=== PATIENT | female | born 1970 | race Caucasian/White ===

== ENCOUNTER 2024-03-09 09:33 | Outpatient (CLI) | payer OTHER, SELFPAY ==
--- NOTE | ~2024-03-09 | MMUS_ITS ---
EXAMINATION: MM diagnostic ernestina BI w mu, US breast LT complete HISTORY: Left breast pain TECHNIQUE: Additional 3-D tomosynthesis images of the breasts were performed and synthetic 2-D images were generated. CAD analysis was submitted and interpreted. High resolution complete left breast ult rasound was performed. COMPARISON: None BREAST PARENCHYMAL COMPOSITION: Not Dense: The breasts are almost entirely fatty. FINDINGS: MAMMOGRAPHIC FINDINGS: There are no suspicious masses, calcifications or architectural distortion in either breast to sugges t malignancy. ULTRASOUND: Complete US of all 4 quadrants of the breast/s and retroareolar region was reviewed. Normal heterogen eous echotexture without focal solid or cystic mass. IMPRESSION: 1. No evidence for malignancy in either breast. 2. Routine yearly screening mammogram and regular clinical breast examination are recommended. BI-RADS Category 1: Negative Reviewed, dictated and finalized at location B. IMPRESSION: 1. No evidence for malignancy in either breast. 2. Routine yearly screening mammogram and regular clinical breast examination a re recommended. BI-RADS Category 1: Negative
== END 2024-03-09 09:34 ==
LOC: MICIMG 09:35
PROVIDERS: PCP Nurse Practitioner Women's Health; Visit Provider Nurse Practitioner Women's Health
DX: N64.4 Mastodynia (principal)
CPT/HCPCS: 76641; 77062; 77066; G0279

== ENCOUNTER 2024-08-24 10:34 | Emergency (ER) | payer OTHER, SELFPAY ==
--- NOTE | 2024-08-24 10:45 | ED_ITS ---
HPI - Eye Problem General Chief complaint: Eye Problems Stated complaint: left eye lid Time Seen by Provider: 08/24/24 10:45 Source: patient, RN notes reviewed and old records reviewed Mode of arrival: ambulatory Limitations: no limitations History of Present Illness HPI Narrative: 53 year presents to [facility] complaints left upper eye lid swelling since Thursday,stated she noted small pustular area under the left upper eyelid lash line but just raised red area now. Patient reports that she has been applying warm compresses to her left eye with no resolution in her symptoms. MD chief complaint: eye pain Onset (ago): day(s) (4) Onset description: gradual Duration: constant Location: left eye Eye Symptoms: pain (upper eyelid) Severity: moderate Treatments Prior to Arrival: other (warm compresses) Related Data Allergies Allergy/AdvReac Type Severity Reaction Status Date / Time Penicillins Allergy Unknown Verified 06/17/16 16:50 Review of Systems Review of Systems: CONSTITUTIONAL: Denies fever, chills, or sweats. EYES: Denies visual changes. Reports redness,, irritation, to right upper eyelid with small pustular area on upper lash line, pustular area now just red raised lesion. ENT: Denies rhinorrhea, congestion, sore throat, or otalgia. CARDIOVASCULAR: Denies chest pain, palpitations, or edema. RESPIRATORY: Denies cough or dyspnea. SKIN: Denies rash or itching. NEUROLOGIC: Denies headache All systems reviewed & are unremarkable except as noted in HPI and below PMFSH Social History Social History (Updated 08/25/24 @ 10:48 by Patricia Valladares NP) Smoking status: Never smoker Alcohol intake: current Alcohol use details: rare social Substance use type: does not use Living arrangements: with family Gender identity (if verbalized by the patient): Female Comments At time of signature, agree with nursing past medical, surgical, social and family history. There is no relevant family history pertinent to the presenting complaint Exam Narrative: GENERAL: Well-appearing, well-nourished, and in no acute distress. HEAD: Normocephalic, atraumatic. EYES: PERRLA and EOMI. Upper and lower eyelids unremarkable right eye, Left upper eyelid is swollen with red lesion noted along inner lash line. No periorbital cellulitis noted. Sclera and conjunctivae clear ENT: Nares clear, no rhinorrhea or epistaxis. Mucous membranes moist. NECK: Supple.no lymphadenopathy CHEST: Clear to auscultation. No respiratory distress.SAO2 100% on room air HEART: Regular rate and rhythm. No murmur heard. Normal peripheral pulses. SKIN: Warm, dry, no rash. NEURO: No focal deficits. Alert and oriented x3. Course Course Emergency Course: Patient is aware of diagnosis, understands and agrees to treatment plan. Anticipatory guidance given. Patient agrees to follow-up as directed and is aware of reasons to seek care at the emergency department. Portions of this record may have been created with voice recognition software Level of Care: Express Care Visit Vital Signs Vital signs: Vital Signs Temperature 36.5 C 08/24/24 10:47 Pulse Rate 67 08/24/24 10:47 Respiratory Rate 16 08/24/24 10:47 Blood Pressure 131/62 08/24/24 10:47 Pulse Oximetry 100 08/24/24 10:47 Oxygen Delivery Room Air 08/24/24 10:47 Temperature 36.5 C 08/24/24 10:47 Pulse Rate 67 08/24/24 10:47 Respiratory Rate 16 08/24/24 10:47 Blood Pressure 131/62 08/24/24 10:47 Pulse Oximetry 100 08/24/24 10:47 Oxygen Delivery Room Air 08/24/24 10:47 Reviewed MDM - Eye Problem MDM Narrative Medical decision making narrative: Consideration of the following conditions may be warranted for the presenting problem, they are not final diagnoses: Bacterial conjunctivitis, allergic conjunctivitis, viral conjunctivitis, foreign body, blepharitis, chalazion, hordeolum, corneal abrasion.? Exam findings show no acute concerns or changes; patient is non-toxic appearing and is in no distress.? Patient is appropriate for outpatient treatment and follow-up. Differential Diagnosis Differential diagnosis: Likely other (upper left eyelid swelling, hordeolum left upper lid, left eye discomfort) Medical Records Attestation: I reviewed the patient's medical records. Critical Care Time Critical Care Time Critical Care Time: No Discharge Plan Discharge Clinical Impression: Pain and swelling of upper eyelid of left eye Internal hordeolum of left eye Qualifiers: Eyelid: upper Qualified Code(s): H00.024 - Hordeolum internum left upper eyelid Patient Disposition: Home, Self-Care Condition: Stable Instructions: Antibiotic Form, Stye (ED) Additional Instructions: Cold compresses to the eyes for comfort May need warm compresses to remove debris in the morning When cleaning the eyes used a washcloth in one direction then change washcloths or use a cotton ball in one direction and then his cotton balls Eyedrops as directed--may be more soothing if left in the refrigerator Do not share medicine--do not touch the eye with the medicine Tylenol or ibuprofen for pain Avoid screen time--television, computer, tablet or phone. Also no reading or driving Follow-up with PCP or functional architect as directed If your symptoms persist, change or worsen significantly before you can contact your personal physician then please, without delay, go to the emergency department for further evaluation. Follow-up with PCP in 7-10 days or sooner if needed Follow up with PCP soon in regards to your blood pressure which is elevated above threshold for referral. Blood pressure above 120/80 may indicate pre- hypertension.131/62 Patient Language: Bangladeshi Prescriptions: New ofloxacin 0.3 % drops See Rx Instructions .ROUTE .COMPLEX Qty: 10 0RF Rx Instructions: put 1-2 drps into affected eye(s) every 2-4 h x 2 days, then 1-2 drps 4 times/day days 3-7 Follow-up/Referrals: Vira,SIDRA Marshall [Primary Care Provider] - Time of Disposition: 11:22 Quality Ponce Coma Scale Eyes: Open Verbal: Oriented and Alert Motor: Follows Commands Jose Luis Coma Total Score: 15
[2024-08-24 10:47] VITALS: BP 131/62; PULSE 67; RESP 16; TEMP 36.5; O2SAT 100
--- OUTSIDE RECORDS SUMMARY | 2024-08-24 11:29 | XMS_ITS | Clinical Summary ---
Author Organization [facility] Address [address], [facility] [address] [place] [address] Phone Care Team Providers Care Business Economist Name Role Phone Joanna Constantino PAC Primary Care Pro vider Bouchra Sauceda MD Unavailable [phone] Allergies Active Allergy Reactions Criticality Noted Date Comments Penicillin G Other (see Comments) 08/28/2016 Patient states mother told her she swelled up with it at age 5 has not had since Medications Multiple Vitamin (MULTIVITAMIN PO) Take by mouth. Activ e acetaminophen (TYLENOL) 325 MG Tablet Take 1 Tablet by mouth every 6 hours as needed for Fever (for temperature greater than 100.4 F.). Do not exceed 4000 mg of acetaminophen in 24 hour from all sources. 1 Active Additional Information Patient not taking.Reported on 11/07/2022 oxyCODONE (ROXICODONE) 5 MG Tablet Take 1 Tablet by mouth every 4 hours as needed for Severe pain. 10 Tablet 1 Active Additional Information Patient not taking.Reported on 11/07/2022 triamcinolone (KENALOG) 0.1 % Ointment Apply thin film to affected area(s) twice daily until healed. 80 g 3 3 Active Additional Information Patient not taking.Reported on 11/07/2022 omeprazole (PriLOSEC) 20 MG CAPSULE DELAYED RELEASE Take 1 Capsule by mouth daily. 90 Capsule 3 3 Active fluticasone (FLONASE) 50 MCG/ACT Suspension 1 [place] by Nasal route daily. Use in each nostril as directed. 16 g 4 Active Active Problems Problem Noted Date Diagnosed Date History of recurrent UTIs 08/28/2016 Acute low back pain 08/28/2016 Resolved Problems Problem Noted Date Diagnosed Date Resolved Date Femoral hernia of left side with obstruction 11/14/2020 Umbilical hernia without obs truction and without gangrene 10/17/2020 11/14/2020 Family History Medical History Relation Name Comments No Known Problems Daughter Diabetes Father Hypertension Father Heart Attack Maternal Grandfather Cancer Maternal Grandmother Leukemia/Lymphoma Maternal Grandmother Cancer Mother uterine Congestive Heart Failure Mother Diabetes Mother Hypertension Mother No Known Problems Son Relation Name Status Comments Daughter Alive Father Alive Maternal Grandfather Maternal Grandmother Mother Alive Paternal Grandfather Paternal Grandmother Son Alive Social History Tobacco Use Types Packs/Day Years Used Date Smoking Tobacco: Never Smokeless Tobacco: Never Tobacco Cessation:Counseling Given: No Alcohol Use Standard Drinks/Week Comments Yes 1 (1 standard drink = 0.6 oz pur e alcohol) weekly PHQ-2 Answer Date Recorded Total Score - Questions 1-9 0 09/24 Education Answer Date Recorded What is the highest level of school you have completed or the highest degree you have received? Some college, no degree 11/07/2022 Sexually Active Control Partners Comments Yes Surgical Male had vas ectomy Comments No Sex and Gender Information Value Date Recorded Sex Assigned at Not on file Legal Sex Female 10:24 PM CDT Gender Identity Not on file Sexual Orientation Not on file Last Filed Vital Signs Vital Sign Reading Time Taken Comments Blood Pressure 128/86 11/20/2023 9:46 AM CDT Pulse 75 11/20/2023 9:46 AM CDT Temperature 36.3 ??C (97.3 ??F) 11/20/2023 9:46 AM CD T Respiratory Rate 12 11/20/2023 9:46 AM CDT Oxygen Saturation 99% 11/20/2023 9:46 AM CDT Inhaled Oxygen Concentration - - Weight 97.1 kg (214 lb) 11/20/2023 9:46 AM CDT Height 177.8 cm (5' 10 ) 11/20/2023 9:46 AM CDT Body Mass Index 30.71 11/20/2023 9:46 AM CDT Plan of Treatment Upcoming Encounters Date Type Department Care Team (Late st Contact Info) Description 09/21/2024 10:15 AM SAFEMAKER Office Visit [facility] - [facility] [address] [place] [address] Joanna Constantino, PAC [address] [place] [address] Health Maintenance Due Date Last Done Comments Hepatitis C Virus (HCV) Screening 1972 TdaP Immunization 1972 Hepatitis B Immunization (1 of 3 - 19+ 3-dose series) 1991 HPV/Cotest 2002 Colonoscopy 2017 Colorectal Cancer Screening 2017 Cervical Cancer Screening (CCS) 03/20/2019 Pap Smear 03/20/2019 03/20/2016 Cologuard 2022 Immunochemical Fecal Occult Blood 2022 Mammogram 2022 06/03/2018, 06/03/2018, 04/16/2016 Pneumococcal Immunization (5 0+ years) (1 of 1 - PCV) 2022 Zoster Immunization (1 of 2) 2022 Influenza Immunization (#1) 2024 SARS-COV-2 Immunization (2 - season) 2024 12/12/2020 Respiratory Syncytial Virus (RSV) Immunization (Adult) (1 - 1-dose 75+ series) 2047 Discussion re Starting/Frequency of Mammograms Discontinued 06/03/2018, 04/16/2016 Meningococcal Immunization (ACWY) Aged Out No longer eligible based on patient's age to complete this topic Rotavirus Immunization Aged Out No lo nger eligible based on patient's age to complete this topic Medical Devices Implanted Type Area Semiautomatic Stitcher Operator Device Identifier Shelf Expiration Date Model / Serial / Lot Mesh Srg 3dmax 6x4in Groin Left Contour Seal Edge Strl Polyp Lg 3d Curve Lapscp Inguinal Hernia - [id number] Implanted:Qty : 1 on 10/29/2020 by Butch Knowles MD at [facility] IMPLANT Left: Abdomen [employer] 02/20/2025 [id number] / [id number] / [id number] Staple Tacker Optifix At - [id number] Implanted:Qty : 1 on 10/29/2020 by Butch Knowles MD at [facility] IMPLANT Left: Abdomen [employer] 06/23/2021 [id number] / [id number] / [id number] Mesh Srg 3dmax 6x4in Groin Right Contour Seal Edge Strl Polyp Lg 3d Curve Lapscp Inguinal Hernia - [id number] Implanted:Qty : 1 on 10/29/2020 by Butch Knowles MD at [facility] IMPLANT Right: Abdomen [employer] 06/23/2024 [id number] / [id number] / [id number] Procedures Procedure Name Priority Date/Time Associated Diagnosis Comments MICHAELLE DIAG BILATERAL DIGITAL W CAD Routine 04/16/2016 SMEAR, THIN PREP PAP SCREEN Routine 03/20/2016 from Last 3 Months or Most Recently Relevant to Health Maintenance Results * MICHAELLE DIAG BILATERAL DIGITAL W CAD (04/16/2016) Anatomical Region Laterality Modality breast Bilateral Other Bouchra Sauceda MD IMG MAMMO ORDERABLE S Final Result * SMEAR, THIN PREP PAP SCREEN (03/20/2016) Specimen of unknown material (specimen) Historical Provider POINT OF CARE TESTING (STEWART WHITTAKER) Final Result from Last 3 Months or Most Recently Relevant to Health Maintenance Insurance [facility] Care Teams Business Economist Relationship Specialty Start Date End Date Joanna Constantino, PEDRO [address] [place] [address] PCP - General Physician Sample Display Preparer 08/27/16 Bouchra Sauceda MD [address] [place] [address] Consulting Physician Obstetrics & Gynecology 08/28/16
--- OUTSIDE RECORDS SUMMARY | 2024-08-24 11:29 | XMS_ITS | Encounter Summary ---
Author Organization [facility] Address [address] [place] [address] Phone Care Team Providers Care Manager Transport Name Role Phone Joanna Constantino Primary Care Prov ider Encounter Details Date Type Department Care Team (Late st Contact Info) Description 12/17/2017 Orders Only [facility] Care ProviderMika MD [address] [place] [id number] Social History Tobacco Use Types Packs/Day Years Used Date Smoking Tobacco: Never Smokeless Tobacco: Never Alcohol Use Standard Drinks/Week Comments Yes 0 (1 standard drink = 0.6 oz pur e alcohol) Comments No Sex and Gender Information Value Date Recorded Sex Assigned at Not on file 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 Historical Provider LAB CYTOLOGY ORDERABLES F inal Result documented in this encounter Visit Diagnoses Not on filedocumented in this encounter Care Teams Manager Transport Relationship Specialty Start Date End Date Joanna Constantino PA PCP - General 12/17/17 documented as of this encounter
--- OUTSIDE RECORDS SUMMARY | 2024-08-24 11:29 | XMS_ITS | Clinical Summary ---
Author Organization [facility] [address] Address [address] [place] [address] Phone Care Team Providers Care Ship/Rec/Doc Control Name Role Phone Joanna Constantino Primary Care Prov ider Allergies Active Allergy Reactions Criticality Noted Date Comments Penicillins Shortness of breath,Swelling High Medications No known medications Active Problems Problem Noted Date Diagnosed Date History of recurrent UTIs 08/28/2016 Surgical History Surgery Date Site/Laterality Comments TONSILLECTOMY 07/27/1975 - 07/26/1976 Medical History Medical History Date Comments Healthy adult on routine physical examination Family History Medical History Relation Name Comments Diabetes Father Hypertension Father Multiple myeloma Maternal Grandmother Diabetes Mother Ovarian cancer Mother Diabetes Mother's Brother Heart attack Paternal Grandfather Relation Name Status Comments Father Maternal Grandmother Mother Mother's Brother Paternal Grandfather Social History Tobacco Use Types Packs/Day Years Used Date Smoking Tobacco: Never Smokeless Tobacco: Never Tobacco Cessation:Counseling Given: Yes Alcohol Use Standard Drinks/Week Comments Yes 0 (1 standard drink = 0.6 oz pur e alcohol) Personal Safety Answer Date Recorded Getting School Help Needed Not on file 10/09 Comments No Sex and Gender Information Value Date Recorded Sex Assigned at Not on file 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 Gender Identity Not on file Sexual Orientation Not on file Occupation Industry Job Start Date Job End Date homemaker Not on file Not on file Not on file Obstetrics History Para Term AB IAB SAB Ectopic Multiple Livin g Live Births 4 2 2 0 2 0 2 0 0 2 2 Date Outcome GA Total Labor Labor/2nd/3rd Weight Sex Type Anes PTL Emelina A1 A5 Name Clin Term Term SAB SAB Last Filed Vital Signs Vital Sign Reading Time Taken Comments Blood Pressure 123/74 05/01/2021 8:45 AM CDT Pulse 66 05/01/2021 8:45 AM CDT Temperature 36.3 ??C (97.4 ??F) 05/01/2021 8:59 AM CD T Respiratory Rate 16 05/01/2021 8:45 AM CDT Oxygen Saturation 98% 05/01/2021 8:45 AM CDT Inhaled Oxygen Concentration - - Weight 88.5 kg (195 lb) 05/01/2021 6:55 AM CDT Height 180.3 cm (5' 11 ) 05/01/2021 6:55 AM CDT Body Mass Index 27.2 05/01/2021 6:55 AM CDT Plan of Treatment Not on file Insurance [facility] CHOICE PLUS [facility] CHOICE PLUS CHOICE PLUS [facility] CHOICE PLUS Care Teams Ship/Rec/Doc Control Relationship Specialty Start Date End Date Joanna Constantino PA PCP - General 12/17/17
--- OUTSIDE RECORDS SUMMARY | 2024-08-24 11:29 | XMS_ITS | Referral Summary ---
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 Gender Identity Not on file Sexual Orientation Not on file Occupation Industry Job Start Date Job End Date homemaker Not on file Not on file Not on file Last Filed Vital Signs [...] Plan of Treatment Not on file Insurance [facility] CHOICE PLUS [facility] CHO[facility] PLUS [facility] CHOICE PLUS Member Subscriber Plan / Payer (Ef fective 2021-Present) Name:Meg Marquez Relation to Subscriber:Self Name:Meg Marquez Payer ID:[id number] (NAIC) Type:[facility] HMO/PPO Address: [id number] [place] [address] [facility] CHOICE PLUS Member Subscriber Plan / Payer (Ef fective 2021-Present) Name:Meg Marquez Relation to Subscriber:Self Name:Meg Marquez Payer ID:[id number] (NAIC) Type:[facility] HMO/PPO Address: [phone] Care Teams Insurance Examiner Relationship Specialty Start Date End Date Joanna Constantino PA PCP - General 12/17/17
== END 2024-08-24 11:28 | disposition home or self-care (01) ==
PROVIDERS: Emergency Provider Registered Nurse; PCP Physician Assistant
DX: H00.024 Hordeolum internum left upper eyelid (principal)
CPT/HCPCS: 99203; G0463